=== PATIENT | female | born 1950 | race Caucasian/White ===

== ENCOUNTER 2017-05-27 19:11 | Emergency (ER) | payer MEDICARE, BC ==
[2017-05-27] MEDS ORDERED: Ketorolac 30 MG/ML SDV ONE (19:23)
[2017-05-27] MEDS ORDERED: Sodium Chloride 0.9% 1,000 ML IV ONE ×2 (19:28→19:40)
[2017-05-27] MEDS ORDERED: Ketorolac 30 MG/ML SDV IVPUSH ONE ×2 (19:28→19:40)
[2017-05-27] MEDS ORDERED: Sodium Chloride 0.9% 1,000 ML ONE (19:30)
[2017-05-27] MEDS ORDERED: Ondansetron 4 MG/2 ML SDV IVPUSH ONE (19:40)
[2017-05-27] MEDS ORDERED: Morphine 4 MG/ML Syringe IVPUSH ONE (19:40)
[2017-05-27] MEDS ORDERED: Morphine 4 MG/ML Syringe ONE (19:40)
[2017-05-27] MEDS ORDERED: Ondansetron 4 MG/2 ML SDV ONE (19:41)
[2017-05-27 19:48] LABS: CHLORIDE,CL 105 mmol/L (98-115); SODIUM,NA 145 mmol/L (136-145)
--- NOTE | 2017-05-27 19:49 | EDM.PDOC ---
ED HPI GENERAL MEDICAL PROBLEM - General Chief Complaint: Flank Pain Stated Complaint: KIDNEY STONES Time Seen by Provider: 05/27/17 19:25 Source of Information: Reports: Patient History Limitations: Reports: No Limitations - History of Present Illness INITIAL COMMENTS - FREE TEXT/NARRATIVE: 66 YO WF present to ER complaining of severe right flank pain which began suddenly 2 hours ago. Pt reports she had recnetly been diagnosed and treated for kidney stones- pt had a stent placed in right ureter and lithotripsy. Pt reports she passed 3 stones over the weekend without discomfort, but today her pain became unbearable prompting ER evaluation. Onset: Today Onset Date: 05/27/17 Onset Time: 17:00 Duration: Hour(s): (2) Location: Reports: Back Quality: Reports: Sharp, Stabbing Severity: Severe Improves with: Reports: None Worsens with: Reports: None Associated Symptoms: Reports: Diaphoresis, Nausea/Vomiting. Denies: Chest Pain , Cough, Fever/Chills, Shortness of Breath - Related Data Allergies Allergy/AdvReac Type Severity Reaction Status Date / Time meperidine HCl [From Demerol] Allergy Severe Seizure Verified 05/27/17 20:06 tramadol Allergy Severe Anaphylactic Verified 05/27/17 20:06 Shock clindamycin Allergy Facial Verified 05/27/17 20:06 Swelling hydromorphone [From Dilaudid] Allergy Headache Verified 05/27/17 20:06 Home Meds: Home Meds Simvastatin [Zocor] 20 mg PO BEDTIME 02/26/14 [History] metFORMIN [Glucophage] 500 mg PO BIDM 02/26/14 [History] Multivitamin with Minerals [Multiple Vitamin] 1 tab PO DAILY 05/18/16 [History] Hydrocodone/Acetaminophen [Hydrocodon-Acetaminophn 10-325] 1 tab PO Q4H [History] Past Medical History HEENT History: Reports: Cataract Cardiovascular History: Reports: High Cholesterol Respiratory History: Reports: Pneumonia, Recurrent Gastrointestinal History: Reports: Diverticulosis, Hiatal Hernia Genitourinary History: Reports: None Musculoskeletal History: Reports: Other (See Below) Other Musculoskeletal History: bursitis Endocrine/Metabolic History: Reports: Diabetes, Type II - Infectious Disease History Infectious Disease History: Reports: Chicken Pox, Mumps - Past Surgical History HEENT Surgical History: Reports: Cataract Surgery GI Surgical History: Reports: Hernia Repair/Other Social & Family History - Family History Cardiac: Reports: Heart Failure, [place] - Tobacco Use Smoking Status *Q: Never Smoker - Caffeine Use Caffeine Use: Reports: None - Alcohol Use Days Per Week of Alcohol Use: 0 - Recreational Drug Use Recreational Drug Use: No - Living Situation & Occupation Occupation: Employed ED ROS GENERAL - Review of Systems Review Of Systems: See Below Constitutional: Reports: No Symptoms HEENT: Reports: No Symptoms Respiratory: Reports: No Symptoms Cardiovascular: Reports: No Symptoms GI/Abdominal: Reports: Nausea : Reports: No Symptoms Musculoskeletal: Reports: Back Pain Skin: Reports: No Symptoms Neurological: Reports: No Symptoms Psychiatric: Reports: No Symptoms Hematologic/Lymphatic: Reports: No Symptoms Immunologic: Reports: No Symptoms ED EXAM, GI/ABD - Physical Exam Exam: See Below Exam Limited By: No Limitations General Appearance: Alert, WD/WN, Mild Distress Throat/Mouth: Normal Inspection, Normal Lips, Normal Teeth, Normal Gums, Normal Oropharynx, Normal Voice, No Airway Compromise Head: Atraumatic, Normocephalic Neck: Normal Inspection, Supple, Non-Tender, Full Range of Motion Respiratory/Chest: No Respiratory Distress, Lungs Clear, Normal Breath Sounds, No Accessory Muscle Use, Chest Non-Tender Cardiovascular: Normal Peripheral Pulses, Regular Rate, Rhythm, No Edema, No Gallop, No JVD, No Murmur, No Rub GI/Abdominal Exam: Normal Bowel Sounds, Soft, Non-Tender, No Organomegaly, No Distention, No Abnormal Bruit, No Mass, Pelvis Stable Back Exam: Full Range of Motion, CVA Tenderness (R) Extremities: Normal Inspection, Normal Range of Motion, Non-Tender, Normal Capillary Refill, No Pedal Edema Neurological: Alert, Oriented, CN II-XII Intact, Normal Cognition, Normal Gait, Normal Reflexes, No Motor/Sensory Deficits Psychiatric: Normal Affect, Normal Mood Skin Exam: Warm, Dry, Intact, Normal Color, No Rash Lymphatic: No Adenopathy Course - Vital Signs Last Recorded V/S: Last Vital Signs Temp 36.4 C 05/27/17 19:35 Pulse 84 05/27/17 20:21 Resp 20 05/27/17 19:55 BP 162/63 H 05/27/17 20:21 Pulse Ox 94 L 05/27/17 19:55 - Orders/Labs/Meds Orders: Active Orders 24 hr Category Date Time Status Abdomen Pelvis wo Cont [CT] Routine Exams 05/27/17 Taken Sodium Chloride 0.9% [Normal Saline] 1,000 ml Med 05/27/17 19:40 Active IV .BOLUS Medication Orders Sodium Chloride (Normal Saline) 1,000 mls @ 999 mls/hr IV .BOLUS ONE Stop: 05/27/17 20:40 Last Admin: 05/27/17 19:49 Dose: Not Given Labs: Laboratory Tests 05/27/17 05/27/17 05/27/17 Range/Units 19:20 19:20 20:15 WBC 8.4 (5.0-10.0) 10^3/uL RBC 5.02 (3.80-5.50) 10^6/uL Hgb 14.8 (12.0-16.0) g/dL Hct 43.2 (37.0-47.0) % MCV 86.1 (82.0-92.0) fL MCH 29.5 (27.0-31.0) pg MCHC 34.2 (32.0-36.0) g/dL RDW 13.0 (11.5-14.5) % Plt Count 247 (150-300) 10^3/uL MPV 7.4 (7.4-10.4) fL Neut % (Auto) 59.7 (50.0-70.0) % Lymph % (Auto) 29.3 (20.0-40.0) % [place] % (Auto) 7.1 (2.0-8.0) % Eos % (Auto) 3.6 H (1.0-3.0) % Baso % (Auto) 0.3 (0.0-1.0) % Neut # (Auto) 5.0 (2.5-7.0) 10^3/uL Lymph # (Auto) 2.5 (1.0-4.0) 10^3/uL [place] # (Auto) 0.6 (0.1-0.8) 10^3/uL Eos # (Auto) 0.3 (0.1-0.3) 10^3/uL Baso # (Auto) 0.0 (0.0-0.1) 10^3/uL Sodium 145 (136-145) mmol/L Potassium 4.4 (3.3-5.3) mmol/L Chloride 105 (98-115) mmol/L Carbon Dioxide 29.3 (21.0-32.0) mmol/L BUN 20 (6-25) mg/dL Creatinine 0.88 (0.51-1.17) mg/dL Est Cr Clr Drug Dosing 53.95 mL/min Estimated GFR (MDRD) > 60 mL/min Glucose 167 H (70-110) mg/dL Calcium 9.3 (8.7-10.3) mg/dL Specimen Type Urincc Urine Color [place] Light (YELLOW) Urine Appearance Cloudy H (CLEAR) Urine pH 6.5 (5.0-9.0) Ur Specific [place] 1.015 (1.005-1.030) Urine Protein 100 H (NEGATIVE) mg/dL Urine Glucose (UA) Negative (NEGATIVE) mg/dL Urine Ketones Negative (NEGATIVE) mg/dL Urine Occult Blood Large H (NEGATIVE) Urine Nitrite Negative (NEGATIVE) Urine Bilirubin Negative (NEGATIVE) Urine Urobilinogen 0.2 (0.2-1.0) E.U./dL Ur Leukocyte Esterase Small H (NEGATIVE) Urine RBC 75-100 H /HPF Urine WBC 0-5 /HPF Meds: Medications Generic Name Dose Route Start Last Admin Trade Name Freq PRN Reason Stop Dose Admin Sodium Chloride 1,000 mls @ 999 mls/hr 05/27/17 19:40 05/27/17 19:49 Normal Saline IV 05/27/17 20:40 Not Given .BOLUS ONE Discontinued Medications Generic Name Dose Route Start Last Admin Trade Name Freq PRN Reason Stop Dose Admin Sodium Chloride 1,000 mls @ 999 mls/hr 05/27/17 19:28 05/27/17 19:32 Normal Saline IV 05/27/17 20:28 999 mls/hr .BOLUS ONE Administration Sodium Chloride Confirm 05/27/17 19:30 05/27/17 19:48 Normal Saline Administered 05/27/17 19:31 Not Given Dose 1,000 mls @ as directed .ROUTE .STK-MED ONE Ketorolac Tromethamine Confirm 05/27/17 19:23 Toradol Administered 05/27/17 19:24 Dose 30 mg .ROUTE .STK-MED ONE Ketorolac Tromethamine 30 mg 05/27/17 19:28 05/27/17 19:25 Toradol IVPUSH 05/27/17 19:29 30 mg ONETIME ONE Administration Ketorolac Tromethamine 30 mg 05/27/17 19:40 Toradol IVPUSH 05/27/17 19:41 ONETIME ONE Morphine Sulfate 4 mg 05/27/17 19:40 05/27/17 19:45 Morphine IVPUSH 05/27/17 19:41 4 mg ONETIME ONE Administration Morphine Sulfate Confirm 05/27/17 19:40 05/27/17 19:47 Morphine Administered 05/27/17 19:41 Not Given Dose 4 mg .ROUTE .STK-MED ONE Ondansetron HCl 4 mg 05/27/17 19:40 Zofran IVPUSH 05/27/17 19:41 ONETIME ONE Ondansetron HCl Confirm 05/27/17 19:41 Zofran Administered 05/27/17 19:42 Dose 4 mg .ROUTE .STK-MED ONE - Radiology Interpretation Free Text/Narrative:: CT abd/pelvis- Departure - Departure Time of Disposition: 20:31 Disposition: Home, Self-Care 01 Condition: Good Clinical Impression: Kidney stone on right side - Discharge Information Instructions: Renal Colic, [id number], Kidney Stones, [id number] Referrals: Kirsten Castellano MD [Primary Care Provider] - Forms: ED Department Discharge - My Orders Last 24 Hours: My Active Orders 05/27/17 Abdomen Pelvis wo Cont [CT] Routine 05/27/17 19:40 Sodium Chloride 0.9% [Normal Saline] 1,000 ml IV .BOLUS - Assessment/Plan Last 24 Hours: My Active Orders 05/27/17 Abdomen Pelvis wo Cont [CT] Routine 05/27/17 19:40 Sodium Chloride 0.9% [Normal Saline] 1,000 ml IV .BOLUS Assessment:: 1. kidney stones Plan: 1. pain resolved after morphine in ER 2. patient has hydrocodone at home which she reports not requiring in 3 days 3. follow up with urology in [place] as scheduled in 1 week 4. return to ER for worsening symptoms
[2017-05-27 20:23] VITALS: BP 162/63
== END 2017-05-27 21:00 | disposition home or self-care (01) ==
LOC: KA.ED 19:11
DX: N13.2 Hydronephrosis with renal and ureteral calculous obstruction (principal); E11.9 Type 2 diabetes mellitus without complications; E78.00 Pure hypercholesterolemia, unspecified; Z98.49 Cataract extraction status, unspecified eye; Z88.5 Allergy status to narcotic agent; Z79.84 Long term (current) use of oral hypoglycemic drugs; Z79.899 Other long term (current) drug therapy; Z87.01 Personal history of pneumonia (recurrent)
CPT/HCPCS: 74176; 80048; 81001; 85025; 96361; 96374; 96375; 99284; J1885; J2270; J2405; J7030

== ENCOUNTER 2017-11-21 18:30 | Emergency (ER) | payer MEDICARE, BC ==
--- NOTE | 2017-11-21 18:48 | EDM.PDOC ---
ED HPI GENERAL MEDICAL PROBLEM - General Chief Complaint: Genitourinary Problem Stated Complaint: LEFT SIDE FLANK PAIN Time Seen by Provider: 11/21/17 18:37 Source of Information: Reports: Patient History Limitations: Reports: No Limitations - History of Present Illness INITIAL COMMENTS - FREE TEXT/NARRATIVE: Patient is a 67-year-old female who presents to the emergency Department this evening with a complaint of left flank pain. States pain started about 1730 this evening and similar to prior renal stone episodes. Patient was seen here May 2017 for similar symptoms and found to have right-sided renal calculi. She does have a history of lithotripsy and stent placement on the right. Patient denies fever, dysuria, hematuria, nausea, vomiting, diarrhea, abdominal pain, any trauma, or pain radiating to lower extremities. Onset: Today Onset Date: 11/21/17 Onset Time: 17:30 Duration: Hour(s):, Getting Worse Location: Reports: Other (Left flank) Quality: Reports: Sharp Severity: Moderate Improves with: Reports: None Worsens with: Reports: Movement Associated Symptoms: Reports: No Other Symptoms. Denies: Chest Pain, Nausea/ Vomiting, Shortness of Breath Left Back Pain Score (Numeric/FACES): 9 - Related Data Allergies Allergy/AdvReac Type Severity Reaction Status Date / Time meperidine HCl [From Demerol] Allergy Severe Seizure Verified 11/21/17 19:28 tramadol Allergy Severe Anaphylactic Verified 11/21/17 19:28 Shock clindamycin Allergy Facial Verified 11/21/17 19:28 Swelling fentanyl Allergy Seizure Verified 11/21/17 19:28 hydromorphone [From Dilaudid] Allergy Headache Verified 11/21/17 19:28 Home Meds: Home Meds Simvastatin [Zocor] 20 mg PO BEDTIME 02/26/14 [History] metFORMIN [Glucophage] 500 mg PO BIDM 02/26/14 [History] Multivitamin with Minerals [Multiple Vitamin] 1 tab PO DAILY 05/18/16 [History] Hydrocodone/Acetaminophen [Hydrocodon-Acetaminophn 10-325] 1 tab PO Q4H [History] Lisinopril [Lisinopril] 10 mg PO DAILY 11/21/17 [History] Past Medical History HEENT History: Reports: Cataract Cardiovascular History: Reports: High Cholesterol Respiratory History: Reports: Pneumonia, Recurrent Gastrointestinal History: Reports: Diverticulosis, Hiatal Hernia Genitourinary History: Reports: Renal Calculus, Other (See Below) Other Genitourinary History: recent cystoscopy and lipotripsy for renal stones to R kidney and stent placement to R ureter 2 weeks ago ((05/14/2017) Musculoskeletal History: Reports: Other (See Below) Other Musculoskeletal History: bursitis Endocrine/Metabolic History: Reports: Diabetes, Type II - Infectious Disease History Infectious Disease History: Reports: Chicken Pox, Mumps - Past Surgical History HEENT Surgical History: Reports: Cataract Surgery GI Surgical History: Reports: Hernia Repair/Other Social & Family History - Family History Cardiac: Reports: Heart Failure, [place] - Tobacco Use Smoking Status *Q: Never Smoker - Caffeine Use Caffeine Use: Reports: None - Alcohol Use Days Per Week of Alcohol Use: 0 - Recreational Drug Use Recreational Drug Use: No - Living Situation & Occupation Occupation: Employed ED ROS GENERAL - Review of Systems Review Of Systems: ROS reveals no pertinent complaints other than HPI. Constitutional: Reports: No Symptoms HEENT: Reports: No Symptoms Respiratory: Reports: No Symptoms Cardiovascular: Reports: No Symptoms Endocrine: Reports: No Symptoms GI/Abdominal: Reports: No Symptoms : Reports: Flank Pain (on left) Musculoskeletal: Reports: No Symptoms Skin: Reports: No Symptoms Neurological: Reports: No Symptoms Psychiatric: Reports: No Symptoms Hematologic/Lymphatic: Reports: No Symptoms Immunologic: Reports: No Symptoms ED EXAM, RENAL/ - Physical Exam Exam: See Below Exam Limited By: No Limitations General Appearance: Alert, WD/WN, Mild Distress Throat/Mouth: Normal Inspection, Normal Oropharynx, No Airway Compromise Head: Atraumatic, Normocephalic Neck: Normal Inspection Respiratory/Chest: No Respiratory Distress, Lungs Clear, Normal Breath Sounds, No Accessory Muscle Use, Chest Non-Tender Cardiovascular: Regular Rate, Rhythm, No Murmur GI/Abdominal: Normal Bowel Sounds, Soft, Non-Tender, No Organomegaly, No Distention, No Abnormal Bruit, No Mass Back Exam: CVA Tenderness (L). No: CVA Tenderness (R) Extremities: Normal Inspection, No Pedal Edema Neurological: Alert, Oriented, Normal Cognition Psychiatric: Normal Affect, Normal Mood Skin Exam: Warm, Dry, Intact, Normal Color, No Rash Course - Vital Signs Last Recorded V/S: Last Vital Signs Temp 98.4 F 11/21/17 19:29 Pulse 109 H 11/21/17 19:29 Resp 18 11/21/17 19:29 BP 185/96 H 11/21/17 19:29 Pulse Ox 94 L 11/21/17 19:29 - Orders/Labs/Meds Orders: Active Orders 24 hr Category Date Time Status Abdomen Pelvis wo Cont [CT] Stat Exams 11/21/17 18:47 Ordered CULTURE URINE [RM] Stat Lab 11/21/17 19:35 Ordered Labs: Laboratory Tests 11/21/17 11/21/17 11/21/17 Range/Units 18:45 19:00 19:00 WBC 6.5 (5.0-10.0) 10^3/uL RBC 4.90 (3.80-5.50) 10^6/uL Hgb 14.1 (12.0-16.0) g/dL Hct 43.3 (37.0-47.0) % MCV 88.2 (82.0-92.0) fL MCH 28.7 (27.0-31.0) pg MCHC 32.6 (32.0-36.0) g/dL RDW 13.3 (11.5-14.5) % Plt Count 230 (150-300) 10^3/uL MPV 7.4 (7.4-10.4) fL Neut % (Auto) 60.9 (50.0-70.0) % Lymph % (Auto) 29.6 (20.0-40.0) % [place] % (Auto) 6.3 (2.0-8.0) % Eos % (Auto) 2.6 (1.0-3.0) % Baso % (Auto) 0.6 (0.0-1.0) % Neut # (Auto) 4.0 (2.5-7.0) 10^3/uL Lymph # (Auto) 1.9 (1.0-4.0) 10^3/uL [place] # (Auto) 0.4 (0.1-0.8) 10^3/uL Eos # (Auto) 0.2 (0.1-0.3) 10^3/uL Baso # (Auto) 0.0 (0.0-0.1) 10^3/uL Sodium 145 (136-145) mmol/L Potassium 3.9 (3.3-5.3) mmol/L Chloride 106 (98-115) mmol/L Carbon Dioxide 26.5 (21.0-32.0) mmol/L BUN 22 (6-25) mg/dL Creatinine 0.82 (0.51-1.17) mg/dL Est Cr Clr Drug Dosing TNP Estimated GFR (MDRD) > 60 mL/min Glucose 116 H (70-110) mg/dL Calcium 9.4 (8.7-10.3) mg/dL Total Bilirubin 0.3 (0.2-1.0) mg/dL AST 29 (15-37) U/L ALT 37 (12-78) U/L Alkaline Phosphatase 67 (46-116) IU/L Total Protein 7.9 (6.4-8.2) g/dL Albumin 4.29 (3.00-4.80) g/dL Specimen Type Urincc Urine Color Yellow (YELLOW) Urine Appearance Clear (CLEAR) Urine pH 5.5 (5.0-9.0) Ur Specific [place] 1.025 (1.005-1.030) Urine Protein Negative (NEGATIVE) mg/dL Urine Glucose (UA) Negative (NEGATIVE) mg/dL Urine Ketones Trace H (NEGATIVE) mg/dL Urine Occult Blood Negative (NEGATIVE) Urine Nitrite Negative (NEGATIVE) Urine Bilirubin Negative (NEGATIVE) Urine Urobilinogen 0.2 (0.2-1.0) E.U./dL Ur Leukocyte Esterase Negative (NEGATIVE) Urine RBC 0-5 /HPF Urine WBC 5-10 H /HPF Ur Epithelial Cells Few /LPF Urine Bacteria Few (NONE TO FEW) /HPF Meds: Medications Discontinued Medications Generic Name Dose Route Start Last Admin Trade Name Freq PRN Reason Stop Dose Admin Sodium Chloride 1,000 mls @ 999 mls/hr 11/21/17 18:42 11/21/17 18:58 Normal Saline IV 11/21/17 19:42 999 mls/hr .BOLUS ONE Administration Ketorolac Tromethamine 30 mg 11/21/17 18:42 11/21/17 18:58 Toradol IVPUSH 11/21/17 18:43 30 mg ONETIME ONE Administration Morphine Sulfate 4 mg 11/21/17 18:42 11/21/17 19:01 Morphine IVPUSH 11/21/17 18:43 4 mg ONETIME ONE Administration Ondansetron HCl 4 mg 11/21/17 18:42 11/21/17 19:04 Zofran IVPUSH 11/21/17 18:43 4 mg ONETIME ONE Administration - Radiology Interpretation Free Text/Narrative:: CT abdomen and pelvis without IV contrast shows no acute process. - Re-Assessments/Exams Free Text/Narrative Re-Assessment/Exam: 11/21/17 20:00 Patient afebrile, nontoxic appearing. Vital signs stable, pain relieved. Patient will follow-up with primary care doctor in 2-3 days. Departure - Departure Time of Disposition: 20:00 Disposition: Home, Self-Care 01 Condition: Good Clinical Impression: Back pain Qualifiers: Back pain location: low back pain Chronicity: acute Back pain laterality: left Sciatica presence: without sciatica Qualified Code(s): M54.5 - Low back pain - Discharge Information Instructions: Muscle Strain, [id number], Back Pain, Adult, [id number] Referrals: Kirsten Castellano MD [Primary Care Provider] - Forms: ED Department Discharge Additional Instructions: Follow-up with Dr. Ornelas in 2-3 days. Return to emergency department sooner if symptoms continue or worsen. - My Orders Last 24 Hours: My Active Orders 11/21/17 18:47 Abdomen Pelvis wo Cont [CT] Stat 11/21/17 19:35 CULTURE URINE [RM] Stat - Assessment/Plan Last 24 Hours: My Active Orders 11/21/17 18:47 Abdomen Pelvis wo Cont [CT] Stat 11/21/17 19:35 CULTURE URINE [RM] Stat Assessment:: Back pain, flank pain Plan: Follow-up with PCP in one to 2 days
[2017-11-21] MEDS: Ketorolac 30 MG/ML SDV IVPUSH ONE (18:58)
[2017-11-21] MEDS: Sodium Chloride 0.9% 1,000 ML IV ONE (18:58)
[2017-11-21] MEDS: Morphine 4 MG/ML Syringe IVPUSH ONE (19:01)
[2017-11-21] MEDS: Ondansetron 4 MG/2 ML SDV IVPUSH ONE (19:04)
[2017-11-21 19:32] VITALS: BP 185/96
[2017-11-21 19:32] LABS: CHLORIDE,CL 106 mmol/L (98-115); SODIUM,NA 145 mmol/L (136-145)
== END 2017-11-21 20:05 | disposition home or self-care (01) ==
LOC: KA.ED 18:30
DX: M54.5 Low back pain (principal); E11.9 Type 2 diabetes mellitus without complications; E78.00 Pure hypercholesterolemia, unspecified; Z88.5 Allergy status to narcotic agent; Z88.1 Allergy status to other antibiotic agents; Z79.84 Long term (current) use of oral hypoglycemic drugs; Z79.899 Other long term (current) drug therapy; Z87.442 Personal history of urinary calculi
CPT/HCPCS: 36415; 74176; 80053; 81001; 85025; 87086; 96361; 96374; 96375; 99284; J1885; J2270; J2405; J7030

== ENCOUNTER 2018-05-10 09:39 | Emergency (ER) | payer MEDICARE, BC ==
[2018-05-10] MEDS ORDERED: Ondansetron 4 MG/2 ML SDV IVPUSH ONE (10:35)
[2018-05-10] MEDS ORDERED: Morphine 2 MG/ML Syringe IVPUSH ONE (10:35)
[2018-05-10] MEDS ORDERED: Sodium Chloride 0.9% 1,000 ML IV ONE ×2 (10:40→11:19)
--- NOTE | 2018-05-10 11:59 | EDM.PDOC ---
ED HPI GENERAL MEDICAL PROBLEM - General Chief Complaint: General Stated Complaint: KIDNEY STONES?? Time Seen by Provider: 05/10/18 10:45 Source of Information: Reports: Patient, Family (daughter) - History of Present Illness INITIAL COMMENTS - FREE TEXT/NARRATIVE: 67-year-old female presents to the emergency room with complaints of left greater than right flank pain. She reports she's been experiencing some nausea and colicky type sharp pain in her flank. She does have a history of multiple kidney stones in the past. She is been feeling symptoms coming on gradually over the last several days but severity increased this morning. She has not had any emesis. She denies any dysuria or hematuria. She hasn't taken anything for her discomfort. She does have some hydrocodone at home from prior episodes for her kidney stones. Onset: Today Onset Date: 05/10/18 Duration: Hour(s):, Getting Worse Location: Reports: Back Quality: Reports: Stabbing Severity: Severe Improves with: Reports: None Associated Symptoms: Reports: Nausea/Vomiting Generalized Pain Score (Numeric/FACES): 8 - Related Data Allergies Allergy/AdvReac Type Severity Reaction Status Date / Time meperidine HCl [From Demerol] Allergy Severe Seizure Verified 05/10/18 10:50 tramadol Allergy Severe Anaphylactic Verified 05/10/18 10:50 Shock clindamycin Allergy Facial Verified 05/10/18 10:50 Swelling fentanyl Allergy Seizure Verified 05/10/18 10:50 hydromorphone [From Dilaudid] Allergy Headache Verified 05/10/18 10:50 Home Meds: Home Meds Simvastatin [Zocor] 20 mg PO BEDTIME 02/26/14 [History] metFORMIN [Glucophage] 1,000 mg PO BIDM 02/26/14 [History] Multivitamin with Minerals [Multiple Vitamin] 1 tab PO DAILY 05/18/16 [History] Hydrocodone/Acetaminophen [Hydrocodon-Acetaminophn 10-325] 1 tab PO Q4H PRN 05/06 [History] Lisinopril 10 mg PO DAILY 11/21/17 [History] Magnesium Oxide [Magnesium] 500 mg PO DAILY 05/10/18 [History] Potassium Gluconate [Potassium] 595 mg PO DAILY 05/10/18 [History] Past Medical History HEENT History: Reports: Cataract Cardiovascular History: Reports: High Cholesterol Respiratory History: Reports: Pneumonia, Recurrent Gastrointestinal History: Reports: Diverticulosis, Hiatal Hernia Genitourinary History: Reports: Renal Calculus, Other (See Below) Other Genitourinary History: recent cystoscopy and lipotripsy for renal stones to R kidney and stent placement to R ureter 2 weeks ago ((05/14/2017) [employer] History: Reports: Musculoskeletal History: Reports: Other (See Below) Other Musculoskeletal History: bursitis Endocrine/Metabolic History: Reports: Diabetes, Type II - Infectious Disease History Infectious Disease History: Reports: Shingles - Past Surgical History HEENT Surgical History: Reports: Cataract Surgery Cardiovascular Surgical History: Reports: None Respiratory Surgical History: Reports: None GI Surgical History: Reports: Colonoscopy, Hernia Repair/Other Female Surgical History: Reports: Breast Biopsy, Hysterectomy Endocrine Surgical History: Reports: None Musculoskeletal Surgical History: Reports: None Social & Family History - Family History Cardiac: Reports: Heart Failure, [place] - Tobacco Use Smoking Status *Q: Never Smoker - Caffeine Use Caffeine Use: Reports: None - Recreational Drug Use Recreational Drug Use: No - Living Situation & Occupation Occupation: Employed ED ROS GENERAL - Review of Systems Review Of Systems: See Below Constitutional: Denies: Fever, Diaphoresis HEENT: Reports: Glasses Respiratory: Denies: Shortness of Breath Cardiovascular: Denies: Chest Pain Endocrine: Reports: No Symptoms GI/Abdominal: Reports: Nausea. Denies: Abdominal Pain : Reports: Flank Pain. Denies: Hematuria, Urgency Musculoskeletal: Reports: Back Pain Skin: Denies: Cyanosis, Diaphoresis Neurological: Reports: No Symptoms Psychiatric: Reports: No Symptoms Hematologic/Lymphatic: Reports: No Symptoms Immunologic: Reports: No Symptoms ED EXAM, GENERAL - Physical Exam Exam: See Below Exam Limited By: No Limitations General Appearance: Alert, WD/WN, No Apparent Distress Nose: Normal Inspection Throat/Mouth: Normal Inspection, Normal Voice, No Airway Compromise Head: Atraumatic, Normocephalic Neck: Normal Inspection Respiratory/Chest: No Respiratory Distress, Lungs Clear, Normal Breath Sounds Cardiovascular: Regular Rate, Rhythm GI/Abdominal: Normal Bowel Sounds, Soft, Non-Tender, No Organomegaly. No: Rebound, Tender Back Exam: CVA Tenderness (L), CVA Tenderness (R). No: Paraspinal Tenderness, Vertebral Tenderness Extremities: Normal Inspection, Normal Range of Motion Neurological: Alert, Oriented, No Motor/Sensory Deficits Psychiatric: Normal Affect, Normal Mood Skin Exam: Warm, Dry, Intact, Normal Color, No Rash Course - Vital Signs Last Recorded V/S: Last Vital Signs Temp 98.1 F 05/10/18 12:32 Pulse 68 05/10/18 12:32 Resp 18 05/10/18 12:32 BP 98/40 L 05/10/18 12:32 Pulse Ox 97 05/10/18 12:32 - Orders/Labs/Meds Labs: Laboratory Tests 05/10/18 05/10/18 05/10/18 Range/Units 10:05 10:30 10:30 WBC 8.7 (5.0-10.0) 10^3/uL RBC 4.15 (3.80-5.50) 10^6/uL Hgb 12.7 (12.0-16.0) g/dL Hct 37.4 (37.0-47.0) % MCV 90.1 (82.0-92.0) fL MCH 30.7 (27.0-31.0) pg MCHC 34.0 (32.0-36.0) g/dL RDW 13.4 (11.5-14.5) % Plt Count 176 (150-300) 10^3/uL MPV 6.9 L (7.4-10.4) fL Neut % (Auto) 82.4 H (50.0-70.0) % Lymph % (Auto) 8.7 L (20.0-40.0) % [place] % (Auto) 7.6 (2.0-8.0) % Eos % (Auto) 0.5 L (1.0-3.0) % Baso % (Auto) 0.8 (0.0-1.0) % Neut # (Auto) 7.1 H (2.5-7.0) 10^3/uL Lymph # (Auto) 0.8 L (1.0-4.0) 10^3/uL [place] # (Auto) 0.7 (0.1-0.8) 10^3/uL Eos # (Auto) 0.0 L (0.1-0.3) 10^3/uL Baso # (Auto) 0.1 (0.0-0.1) 10^3/uL Sodium 150 H (136-145) mmol/L Potassium 4.8 (3.3-5.3) mmol/L Chloride 104 (98-115) mmol/L Carbon Dioxide 26.8 (21.0-32.0) mmol/L Anion Gap 24.0 H (5-15) mmol/L BUN 22 (6-25) mg/dL Creatinine 1.07 (0.51-1.17) mg/dL Est Cr Clr Drug Dosing 50.06 mL/min Estimated GFR (MDRD) 51 mL/min Glucose 142 mg/dL Calcium 9.2 (8.7-10.3) mg/dL Specimen Type Urincc Urine Color Dark yellow H (YELLOW) Urine Appearance Slightly cloudy H (CLEAR) Urine pH 5.0 (5.0-9.0) Ur Specific [place] >= 1.030 (1.005-1.030) Urine Protein 100 H (NEGATIVE) mg/dL Urine Glucose (UA) Negative (NEGATIVE) mg/dL Urine Ketones 15 H (NEGATIVE) mg/dL Urine Occult Blood Negative (NEGATIVE) Urine Nitrite Negative (NEGATIVE) Urine Bilirubin Small H (NEGATIVE) Urine Urobilinogen 0.2 (0.2-1.0) E.U./dL Ur Leukocyte Esterase Negative (NEGATIVE) Urine RBC 0-5 /HPF Urine WBC 5-10 H /HPF Ur Epithelial Cells Few /LPF Urine Bacteria Moderate H (NONE TO FEW) /HPF Meds: Medications Discontinued Medications Generic Name Dose Route Start Last Admin Trade Name Freq PRN Reason Stop Dose Admin Sodium Chloride 1,000 mls @ 1,000 mls/hr 05/10/18 10:40 05/10/18 10:10 Normal Saline IV 05/10/18 11:39 1,000 mls/hr .BOLUS ONE Administration Sodium Chloride 1,000 mls @ 1,000 mls/hr 05/10/18 11:19 05/10/18 11:21 Normal Saline IV 05/10/18 12:18 1,000 mls/hr .BOLUS ONE Administration Morphine Sulfate 2 mg 05/10/18 10:35 05/10/18 09:45 Morphine IVPUSH 05/10/18 10:36 2 mg ONETIME ONE Administration Ondansetron HCl 4 mg 05/10/18 10:35 05/10/18 09:43 Zofran IVPUSH 05/10/18 10:36 4 mg ONETIME ONE Administration - Re-Assessments/Exams Free Text/Narrative Re-Assessment/Exam: 05/10/18 12:09 pain has improved to 5/10. 2L NS IV given. MS 2mg IV given. 05/10/18 12:57 Nausea is resolved with IV Zofran. Her pain is improved and feels is manageable at this time. She has not felt the need to urinate. She does state that she has a urine screen at home. Departure - Departure Time of Disposition: 13:03 Disposition: Home, Self-Care 01 Condition: Fair Clinical Impression: Kidney stone on right side, Bilateral flank pain, History of kidney stones - Discharge Information Instructions: Kidney Stones, [id number], Flank Pain, Adult, [id number] Referrals: Kirsten Castellano MD [Primary Care Provider] - Forms: ED Department Discharge Additional Instructions: 1. Continue with oral hydration. Recommend drinking 2 L of water a day 2. Zofran ODT for nausea every 6 hours when necessary. 3. Patient should screen her urine so she knows when she passes a stone. 4. Hydrocodone as needed for pain no additional narcotics was prescribed. Patient has her own hydrocodone. 5. Follow-up with your urology and/or primary care if symptoms persist or reoccur. - Assessment/Plan Assessment:: Flank pain Nausea History of kidney stones kidney stone Mild hypernatremia Mild dehydration Plan: 1. Continue with oral hydration. Recommend drinking 2 L of water a day 2. Zofran ODT for nausea every 6 hours when necessary. 3. Patient should screen her urine so she knows when she passes a stone. 4. Hydrocodone as needed for pain no additional narcotics was prescribed. Patient has her own hydrocodone. 5. Follow-up with your urology and/or primary care if symptoms persist or reoccur.
[2018-05-10 12:32] VITALS: BP 98/40
[2018-05-10] MEDS ORDERED: Ondansetron 4 MG Tab.DIS PO SCH (13:00)
== END 2018-05-10 13:15 | disposition home or self-care (01) ==
LOC: KA.ED 09:39
DX: N20.0 Calculus of kidney (principal); E87.0 Hyperosmolality and hypernatremia; E86.0 Dehydration; E11.9 Type 2 diabetes mellitus without complications; Z88.8 Allergy status to other drugs, medicaments and biological substances; Z88.5 Allergy status to narcotic agent; Z79.899 Other long term (current) drug therapy
CPT/HCPCS: 36415; 80048; 81001; 85025; 96361; 96374; 96375; 99284; A9270; J2270; J2405; J7030

== ENCOUNTER 2019-01-01 07:48 | Emergency (ER) | payer MEDICARE, BC ==
[2019-01-01 08:12] VITALS: BP 149/91
--- NOTE | 2019-01-01 08:32 | EDM.PDOC ---
ED HPI GENERAL MEDICAL PROBLEM - General Chief Complaint: General Stated Complaint: UPPER RESPIRATORY Time Seen by Provider: 01/01/19 08:15 Source of Information: Reports: Patient History Limitations: Reports: No Limitations - History of Present Illness INITIAL COMMENTS - FREE TEXT/NARRATIVE: 68 YO WF presents to ER complaining of sore throat x 2 days with congestion. Pt reports symptoms started yesterday but became worse overnight. Pt states she's able to swallow but it's painful. Pt denies any stridor, no neck stiffness, no fever/chills and no shortness of breath. Pt denies any recent sick contacts. Onset Date: 12/31/18 Duration: Day(s): (2) Location: Reports: Other (throat) Quality: Reports: Ache Severity: Moderate Improves with: Reports: None Worsens with: Reports: None Associated Symptoms: Reports: No Other Symptoms, Cough. Denies: Fever/Chills, Headaches, Nausea/Vomiting, Rash - Related Data Allergies Allergy/AdvReac Type Severity Reaction Status Date / Time meperidine HCl [From Demerol] Allergy Severe Seizure Verified 01/01/19 07:55 tramadol Allergy Severe Anaphylactic Verified 01/01/19 07:55 Shock clindamycin Allergy Facial Verified 01/01/19 07:55 Swelling fentanyl Allergy Seizure Verified 01/01/19 07:55 hydromorphone [From Dilaudid] Allergy Headache Verified 01/01/19 07:55 Home Meds: Home Meds Simvastatin [Zocor] 20 mg PO BEDTIME 02/26/14 [History] Hydrocodone/Acetaminophen [Hydrocodon-Acetaminophn 10-325] 1 tab PO Q4H PRN 05/06 [History] Lisinopril 10 mg PO DAILY 11/21/17 [History] Ondansetron [Ondansetron ODT] 4 mg SL Q8H PRN 05/20/18 [History] metFORMIN HCl [Metformin HCl] 1,000 mg PO BIDMEALS #0 05/24/18 [Rx] Multivitamin [Multivitamins] 1 cap PO DAILY 06/28/18 [History] Urea [Urea 20% Crm] 1 applic TOP TID 08/04/18 [History] Amoxicillin [Amoxil] 875 mg PO Q12HR #18 tab 01/01/19 [Rx] Past Medical History HEENT History: Reports: Cataract Other HEENT History: glasses Cardiovascular History: Reports: High Cholesterol, Hypertension Respiratory History: Reports: Pneumonia, Recurrent Gastrointestinal History: Reports: Diverticulosis, Hiatal Hernia Other Gastrointestinal History: umbilical hernias Genitourinary History: Reports: Renal Calculus, Other (See Below) Other Genitourinary History: recent cystoscopy and lipotripsy for renal stones to R kidney and stent placement to R ureter 2 weeks ago ((05/14/2017) [employer] 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: Musculoskeletal History: Reports: Other (See Below) Other Musculoskeletal History: bursitis Neurological History: Reports: Seizure, Other (See Below) Other Neuro History: in the past from pain medications Endocrine/Metabolic History: Reports: Diabetes, Type II - Infectious Disease History Infectious Disease History: Reports: Chicken Pox, Influenza, Measles, Mumps, Shingles - Past Surgical History Head Surgeries/Procedures: Reports: None HEENT Surgical History: Reports: Cataract Surgery Cardiovascular Surgical History: Reports: None Respiratory Surgical History: Reports: None GI Surgical History: Reports: Colonoscopy, Hernia Repair/Other Female Surgical History: Reports: Breast Biopsy, Hysterectomy, Lithotripsy/ ESWL, Ureteral Stent Endocrine Surgical History: Reports: None Neurological Surgical History: Reports: None Musculoskeletal Surgical History: Reports: None Social & Family History - Family History Family Medical History: Noncontributory Cardiac: Reports: Heart Failure, [place] - Tobacco Use Smoking Status *Q: Never Smoker Second Hand Smoke Exposure: No - Caffeine Use Caffeine Use: Reports: None - Recreational Drug Use Recreational Drug Use: No - Living Situation & Occupation Occupation: Employed ED ROS GENERAL - Review of Systems Review Of Systems: See Below Constitutional: Reports: No Symptoms HEENT: Reports: Rhinitis, Throat Pain. Denies: Throat Swelling Respiratory: Reports: No Symptoms Cardiovascular: Reports: No Symptoms Endocrine: Reports: No Symptoms GI/Abdominal: Reports: No Symptoms : Reports: No Symptoms Musculoskeletal: Reports: No Symptoms Skin: Reports: No Symptoms Neurological: Reports: No Symptoms Psychiatric: Reports: No Symptoms Hematologic/Lymphatic: Reports: No Symptoms Immunologic: Reports: No Symptoms ED EXAM, GENERAL - Physical Exam Exam: See Below Exam Limited By: No Limitations General Appearance: Alert, WD/WN, No Apparent Distress Ears: Normal External Exam, Normal Canal, Hearing Grossly Normal, Normal TMs Ear Exam: Bilateral Ear: Auricle Normal, Canal Normal, TM normal Nose: Nasal Drainage, Clear Rhinorrhea Throat/Mouth: Normal Lips, Normal Gums, Normal Voice, No Airway Compromise, Inflammation Head: Atraumatic, Normocephalic Neck: Normal Inspection, Supple, Non-Tender, Full Range of Motion Respiratory/Chest: No Respiratory Distress, Lungs Clear, Normal Breath Sounds, No Accessory Muscle Use, Chest Non-Tender Cardiovascular: Normal Peripheral Pulses, Regular Rate, Rhythm, No Edema, No Gallop, No JVD, No Murmur, No Rub GI/Abdominal: Normal Bowel Sounds, Soft, Non-Tender, No Organomegaly, No Distention, No Abnormal Bruit, No Mass Back Exam: Normal Inspection, Full Range of Motion, NT Extremities: Normal Inspection, Normal Range of Motion, Non-Tender, Normal Capillary Refill, No Pedal Edema Neurological: Alert, Oriented, CN II-XII Intact, Normal Cognition, Normal Gait, Normal Reflexes, No Motor/Sensory Deficits Psychiatric: Normal Affect, Normal Mood Skin Exam: Warm, Dry, Intact, Normal Color, No Rash Lymphatic: No Adenopathy Course - Vital Signs Last Recorded V/S: Last Vital Signs Temp 36.8 C 01/01/19 08:03 Pulse 107 H 01/01/19 08:03 Resp 16 01/01/19 08:03 BP 149/91 H 01/01/19 08:03 Pulse Ox 94 L 01/01/19 08:03 - Orders/Labs/Meds Orders: Active Orders 24 hr Category Date Time Status CULTURE STREP A CONFIRMATION [] Stat Lab 01/01/19 08:00 Results STREP SCRN A RAPID W CULT CONF [] Stat Lab 01/01/19 08:00 Results Meds: Medications Discontinued Medications Generic Name Dose Route Start Last Admin Trade Name Kang PRN Reason Stop Dose Admin Amoxicillin 875 mg 01/01/19 08:25 Amoxil PO 01/01/19 08:26 ONETIME ONE Ketorolac Tromethamine 60 mg 01/01/19 08:25 Toradol IM 01/01/19 08:26 ONETIME ONE Departure - Departure Time of Disposition: 08:35 Disposition: Home, Self-Care 01 Condition: Good Clinical Impression: Pharyngitis Qualifiers: Pharyngitis/tonsillitis etiology: unspecified etiology Qualified Code(s): J02.9 - Acute pharyngitis, unspecified Upper respiratory infection Qualifiers: URI type: unspecified URI Qualified Code(s): J06.9 - Acute upper respiratory infection, unspecified - Discharge Information Prescriptions: Amoxicillin [Amoxil] 875 mg PO Q12HR #18 tab Instructions: Sore Throat, Upper Respiratory Infection, Adult, [id number] Referrals: Kirsten Castellano MD [Primary Care Provider] - Forms: ED Department Discharge, ED Return to Work/School Form Additional Instructions: 1. discharge home 2. amoxil 875mg PO BID x 10 days 3. zyrtec 10mg PO QD 4. benadryl 50mg PO QHS PRN 5. motrin 600mg PO Q6 x 5 days 6. follow up with PCP 48 hours if no improvement 7. return to ER for worsening symptoms - My Orders Last 24 Hours: My Active Orders 01/01/19 08:00 CULTURE STREP A CONFIRMATION [RM] Stat STREP SCRN A RAPID W CULT CONF [] Stat - Assessment/Plan Last 24 Hours: My Active Orders 01/01/19 08:00 CULTURE STREP A CONFIRMATION [RM] Stat STREP SCRN A RAPID W CULT CONF [] Stat Assessment:: 1. acute pharyngitis 2. upper respiratory tract infection Plan: 1. discharge home 2. amoxil 875mg PO BID x 10 days 3. zyrtec 10mg PO QD 4. benadryl 50mg PO QHS PRN 5. motrin 600mg PO Q6 x 5 days 6. follow up with PCP 48 hours if no improvement 7. return to ER for worsening symptoms
[2019-01-01] MEDS: Ketorolac 60 MG/2 ML SDV IM ONE (08:41)
[2019-01-01] MEDS: Amoxicillin 500 MG Cap PO SCH (08:42)
[2019-01-01] MEDS: Amoxicillin 875 MG Tab PO ONE (08:42)
== END 2019-01-01 08:54 | disposition home or self-care (01) ==
LOC: KA.ED 07:48
DX: J02.9 Acute pharyngitis, unspecified (principal); I10 Essential (primary) hypertension; E11.9 Type 2 diabetes mellitus without complications; E78.00 Pure hypercholesterolemia, unspecified; Z79.84 Long term (current) use of oral hypoglycemic drugs; Z79.899 Other long term (current) drug therapy; Z88.8 Allergy status to other drugs, medicaments and biological substances; Z88.6 Allergy status to analgesic agent; Z88.5 Allergy status to narcotic agent; Z88.1 Allergy status to other antibiotic agents
CPT/HCPCS: 87081; 87430; 96372; 99283; A9270-GY; J1885

== ENCOUNTER 2019-07-11 16:05 | Emergency (ER) | payer MEDICARE, BC ==
--- NOTE | 2019-07-11 16:24 | EDM.PDOC ---
ED HPI GENERAL MEDICAL PROBLEM - General Chief Complaint: Headache Stated Complaint: HEADACHE, N/V Time Seen by Provider: 07/11/19 16:23 Source of Information: Reports: Patient, Family History Limitations: Reports: No Limitations - History of Present Illness INITIAL COMMENTS - FREE TEXT/NARRATIVE: Spinal on the 06 02 hip arthroscopic cleaning up. Did well yesterday was likely too active. Headache started to develop last evening but was mild in nature. She retired to bed awakening with headache that worsened, Today extreme headache with nausea vomiting. Onset Date: 07/10/19 Onset Time: 19:00 Duration: Hour(s):, Getting Worse Location: Reports: Head Quality: Reports: Sharp Severity: Severe Improves with: Reports: None Worsens with: Reports: Movement Context: Reports: Other Associated Symptoms: Reports: Nausea/Vomiting headache Pain Score (Numeric/FACES): 9 - Related Data Allergies Allergy/AdvReac Type Severity Reaction Status Date / Time meperidine HCl [From Demerol] Allergy Severe Seizure Verified 07/11/19 16:48 tramadol Allergy Severe Anaphylactic Verified 07/11/19 16:48 Shock clindamycin Allergy Facial Verified 07/11/19 16:48 Swelling fentanyl Allergy Seizure Verified 07/11/19 16:48 hydromorphone [From Dilaudid] Allergy Headache Verified 07/11/19 16:48 Home Meds: Home Meds Simvastatin [Zocor] 20 mg PO BEDTIME 02/26/14 [History] Hydrocodone/Acetaminophen [Hydrocodon-Acetaminophn 10-325] 1 tab PO Q4H PRN 05/06 [History] Lisinopril 10 mg PO DAILY 11/21/17 [History] Ondansetron [Ondansetron ODT] 4 mg SL Q8H PRN 05/20/18 [History] metFORMIN HCl [Metformin HCl] 1,000 mg PO BIDMEALS #0 05/24/18 [Rx] Multivitamin [Multivitamins] 1 cap PO DAILY 06/28/18 [History] Urea [Urea 20% Crm] 1 applic TOP TID 08/04/18 [History] Past Medical History HEENT History: Reports: Cataract Other HEENT History: glasses Cardiovascular History: Reports: High Cholesterol, Hypertension Respiratory History: Reports: Pneumonia, Recurrent Gastrointestinal History: Reports: Diverticulosis, Hiatal Hernia Other Gastrointestinal History: umbilical hernias Genitourinary History: Reports: Renal Calculus, Other (See Below) Other Genitourinary History: recent cystoscopy and lipotripsy for renal stones to R kidney and stent placement to R ureter 2 weeks ago ((05/14/2017) [employer] TECHNICIAN History: Reports: Musculoskeletal History: Reports: Other (See Below) Other Musculoskeletal History: bursitis Neurological History: Reports: Seizure, Other (See Below) Other Neuro History: in the past from pain medications Endocrine/Metabolic History: Reports: Diabetes, Type II - Infectious Disease History Infectious Disease History: Reports: Chicken Pox, Influenza, Measles, Mumps, Shingles - Past Surgical History Head Surgeries/Procedures: Reports: None HEENT Surgical History: Reports: Cataract Surgery Cardiovascular Surgical History: Reports: None Respiratory Surgical History: Reports: None GI Surgical History: Reports: Colonoscopy, Hernia Repair/Other Female Surgical History: Reports: Breast Biopsy, Hysterectomy, Lithotripsy/ ESWL, Ureteral Stent Endocrine Surgical History: Reports: None Neurological Surgical History: Reports: None Musculoskeletal Surgical History: Reports: None Social & Family History - Family History Family Medical History: Noncontributory Cardiac: Reports: Heart Failure, [place] - Caffeine Use Caffeine Use: Reports: None - Living Situation & Occupation Occupation: Employed ED ROS GENERAL - Review of Systems Review Of Systems: See Below Constitutional: Reports: No Symptoms HEENT: Reports: No Symptoms Respiratory: Reports: No Symptoms Cardiovascular: Reports: No Symptoms Endocrine: Reports: No Symptoms GI/Abdominal: Reports: Nausea, Vomiting : Reports: No Symptoms Musculoskeletal: Reports: Other (Hip pain with arthroscopic cleaning of the hip joint) Skin: Reports: No Symptoms Neurological: Reports: Headache Psychiatric: Reports: No Symptoms Hematologic/Lymphatic: Reports: No Symptoms Immunologic: Reports: No Symptoms ED EXAM, GENERAL - Physical Exam Exam: See Below Exam Limited By: No Limitations General Appearance: Alert, WD/WN, Severe Distress Ears: Normal External Exam, Normal Canal, Hearing Grossly Normal Nose: Normal Inspection, Normal Mucosa, No Blood Throat/Mouth: Normal Inspection, Normal Lips, Normal Teeth, Normal Oropharynx Head: Atraumatic, Normocephalic Neck: Normal Inspection, Supple, Non-Tender, Full Range of Motion Respiratory/Chest: No Respiratory Distress, Lungs Clear, Normal Breath Sounds, No Accessory Muscle Use, Chest Non-Tender Cardiovascular: Normal Peripheral Pulses GI/Abdominal: Normal Bowel Sounds, Soft, Non-Tender, No Organomegaly, No Distention, No Abnormal Bruit, No Mass (Female) Exam: Deferred Rectal (Female) Exam: Deferred Extremities: Normal Inspection, Normal Range of Motion Neurological: Alert, Oriented, CN II-XII Intact, Normal Cognition Psychiatric: Normal Affect, Normal Mood Skin Exam: Warm, Dry, Intact, Normal Color, No Rash Lymphatic: No Adenopathy Course - Vital Signs Last Recorded V/S: Last Vital Signs Temp 36.0 C 07/11/19 16:10 Pulse 80 07/11/19 16:10 Resp 20 07/11/19 16:10 BP 174/78 H 07/11/19 16:10 Pulse Ox 94 L 07/11/19 16:10 - Orders/Labs/Meds Orders: Active Orders 24 hr Category Date Time Status Peripheral IV Care [RC] . DIRECTED Care 07/11/19 16:31 Active Sodium Chloride 0.9% [Saline Flush] Med 07/11/19 16:31 Active 10 ml FLUSH Q8HR PRN Peripheral IV Insertion Adult [OM.PC] Routine Oth 07/11/19 16:31 Ordered Medication Orders Sodium Chloride (Saline Flush) 10 ml FLUSH Q8HR PRN PRN Reason: keep vein open Last Admin: 07/11/19 16:45 Dose: 10 ml Labs: Laboratory Tests 07/11/19 07/11/19 Range/Units 16:37 16:37 WBC 7.24 (5.00-10.00) 10^3/uL RBC 3.92 (3.80-5.50) 10^6/uL Hgb 12.1 (12.0-16.0) g/dL Hct 35.8 L (37.0-47.0) % MCV 91.3 (82.0-92.0) fL MCH 30.9 (27.0-31.0) pg MCHC 33.8 (32.0-36.0) g/dL RDW 13.3 (11.5-14.5) % Plt Count 171 (150-400) 10^3/uL MPV 9.3 (7.4-10.4) fL Immature Gran % (Auto) 0.3 (0.0-5.0) % Neut % (Auto) 83.2 H (50.0-70.0) % Lymph % (Auto) 9.7 L (20.0-40.0) % [place] % (Auto) 5.9 (2.0-8.0) % Eos % (Auto) 0.8 L (1.0-3.0) % Baso % (Auto) 0.1 (0.0-1.0) % Immature Gran # (Auto) 0.02 (0.00-0.50) 10^3/uL Neut # (Auto) 6.02 (2.50-7.00) 10^3/uL Lymph # (Auto) 0.70 L (1.00-4.00) 10^3/uL [place] # (Auto) 0.43 (0.10-0.80) 10^3/uL Eos # (Auto) 0.06 L (0.10-0.30) 10^3/uL Baso # (Auto) 0.01 (0.00-0.10) 10^3/uL Sodium 144 (136-145) mmol/L Potassium 4.2 (3.3-5.3) mmol/L Chloride 104 (98-115) mmol/L Carbon Dioxide 29.3 (21.0-32.0) mmol/L Anion Gap 14.9 (5-15) mmol/L BUN 12 (6-25) mg/dL Creatinine 0.84 (0.51-1.17) mg/dL Est Cr Clr Drug Dosing TNP Estimated GFR (MDRD) > 60 mL/min Glucose 135 H (75 - 99) mg/dL Calcium 9.0 (8.7-10.3) mg/dL Meds: Medications Generic Name Dose Route Start Last Admin Trade Name Freq PRN Reason Stop Dose Admin Sodium Chloride 10 ml 07/11/19 16:31 07/11/19 16:45 Saline Flush FLUSH 10 ml Q8HR PRN Administration keep vein open Discontinued Medications Generic Name Dose Route Start Last Admin Trade Name Freq PRN Reason Stop Dose Admin Diphenhydramine HCl 25 mg 07/11/19 16:32 07/11/19 17:13 Benadryl IVPUSH 07/11/19 16:33 25 mg ONETIME ONE Administration Sodium Chloride 1,000 mls @ 999 mls/hr 07/11/19 16:30 07/11/19 17:05 Normal Saline IV 07/11/19 17:30 999 mls/hr .BOLUS ONE Administration Ketorolac Tromethamine 30 mg 07/11/19 16:33 07/11/19 17:10 Toradol IVPUSH 07/11/19 16:34 30 mg ONETIME ONE Administration Ondansetron HCl 8 mg 07/11/19 16:50 07/11/19 17:06 Zofran IVPUSH 07/11/19 16:51 8 mg ONETIME ONE Administration - Re-Assessments/Exams Free Text/Narrative Re-Assessment/Exam: 07/11/19 18:24 pain now at a six Free Text/Narrative Re-Assessment/Exam: 07/11/19 19:00 Nausea resolved pain continues to improve and is willing to go home at this time. Pain less than 6 Departure - Departure Time of Disposition: 19:00 Disposition: Home, Self-Care 01 Clinical Impression: Tension-type headache - Discharge Information *PRESCRIPTION DRUG MONITORING PROGRAM REVIEWED*: Not Applicable *COPY OF PRESCRIPTION DRUG MONITORING REPORT IN PATIENT LISET: Not Applicable Instructions: General Headache Without Cause, [id number] Referrals: Kirsten Castellano MD [Primary Care Provider] - Forms: ED Department Discharge Additional Instructions: Home rest in a quiet place. Continue your current medications as directed as well as diet and activities as tolerated. Avoid any stressors or irritants such as light, noise, orders, or foods & beverages that did not agree with you. Recheck as needed, return if headache should recur or worsen. - Problem List & Annotations (1) Headache after spinal puncture SNOMED Code(s): 056125831 Code(s): G97.1 - OTHER REACTION TO SPINAL AND LUMBAR PUNCTURE Status: Acute Priority: High Current Visit: Yes Onset Date: ~07/10/19 (2) Nausea & vomiting SNOMED Code(s): 97510774 Code(s): R11.2 - NAUSEA WITH VOMITING, UNSPECIFIED Status: Acute Priority : High Current Visit: Yes Qualifiers: Vomiting Intractability: unspecified (3) Hyperglycemia due to type 2 diabetes mellitus SNOMED Code(s): 161487379676839, 327246375337046 Code(s): E11.65 - TYPE 2 DIABETES MELLITUS WITH HYPERGLYCEMIA Status: Acute Priority: Medium Current Visit: Yes - Problem List Review Problem List Initiated/Reviewed/Updated: Yes - My Orders Last 24 Hours: My Active Orders 07/11/19 16:31 Peripheral IV Care [RC] . DIRECTED Sodium Chloride 0.9% [Saline Flush] 10 ml FLUSH Q8HR PRN Peripheral IV Insertion Adult [OM.PC] Routine - Assessment/Plan Last 24 Hours: My Active Orders 07/11/19 16:31 Peripheral IV Care [RC] . DIRECTED Sodium Chloride 0.9% [Saline Flush] 10 ml FLUSH Q8HR PRN Peripheral IV Insertion Adult [OM.PC] Routine Plan: Home rest in a quiet place. Avoid any stressors or irritants such as light, noise, orders, or foods & beverages that did not agree with you. Recheck as needed, return if headache should recur or worsen.
[2019-07-11] MEDS ORDERED: Sodium Chloride 0.9% 1,000 ML IV ONE (16:30)
[2019-07-11] MEDS ORDERED: Sodium Chloride 0.9% 10 ML Syringe FLUSH PRN (16:31)
[2019-07-11] MEDS ORDERED: diphenhydrAMINE 50 MG/ML SDV IVPUSH ONE (16:32)
[2019-07-11] MEDS ORDERED: Ketorolac 30 MG/ML SDV IVPUSH ONE (16:33)
[2019-07-11] MEDS ORDERED: Ondansetron 8 MG in Sodium Chloride 0.9% 50 ML IV ONE (16:33)
[2019-07-11] MEDS ORDERED: Ondansetron 4 MG/2 ML SDV IVPUSH ONE (16:50)
[2019-07-11 17:08] LABS: ANION GAP 14.9 mmol/L (5-15); CHLORIDE,CL 104 mmol/L (98-115); SODIUM,NA 144 mmol/L (136-145)
[2019-07-11 19:20] VITALS: BP 136/65; PULSE 55
== END 2019-07-11 19:16 | disposition home or self-care (01) ==
LOC: KA.ED 16:05
DX: G44.209 Tension-type headache, unspecified, not intractable (principal); I10 Essential (primary) hypertension; E78.00 Pure hypercholesterolemia, unspecified; E11.9 Type 2 diabetes mellitus without complications; Z88.1 Allergy status to other antibiotic agents; Z88.8 Allergy status to other drugs, medicaments and biological substances; Z79.899 Other long term (current) drug therapy; Z79.84 Long term (current) use of oral hypoglycemic drugs; Z90.710 Acquired absence of both cervix and uterus
CPT/HCPCS: 80048; 85025; 96361; 96374; 96375; 99284; J1200; J1885; J2405; J7030

== ENCOUNTER 2021-08-12 10:23 | Emergency (ER) | payer MEDICARE, BC ==
[2021-08-12] MEDS: Aspirin 81 MG Tab.Chew PO ONE (10:45)
--- NOTE | 2021-08-12 11:04 | EDM.PDOC ---
ED HPI GENERAL MEDICAL PROBLEM - General Chief Complaint: General Stated Complaint: HEADACHE, CHEST CONGESTION Time Seen by Provider: 08/12/21 10:30 Source of Information: Reports: Patient, Family (daughter) - History of Present Illness INITIAL COMMENTS - FREE TEXT/NARRATIVE: 71-year-old female presents to the emergency room with complaints of headache and chest congestion. Her symptoms started yesterday morning. She reports a nonproductive cough. She states that it "feels like as elephant is on her chest." She reports no underlying cardiac history other than high cholesterol. She takes a statin for this. No history of NV. No CVA. She has frequent headaches in the past. Described as tension type headaches in her chart. She has no fever, no chills, no abdominal pain. She reports no sinus pain. No arm, back shoulder neck or jaw pain. No nausea or vomiting. Onset: Today Onset Date: 08/11/21 Duration: Day(s): Location: Reports: Head Quality: Reports: Pressure Severity: Mild Improves with: Reports: None, Medication Worsens with: Reports: Breathing Associated Symptoms: Reports: Cough, Headaches. Denies: cough w sputum, Diaphoresis, Fever/Chills, Nausea/Vomiting, Shortness of Breath Treatments WHIZZER: Reports: NSAIDS Chest Pain Score (Numeric/FACES): 8 - Related Data Allergies Allergy/AdvReac Type Severity Reaction Status Date / Time meperidine HCl [From Demerol] Allergy Severe Seizure Verified 08/12/21 10:48 tramadol Allergy Severe Anaphylactic Verified 08/12/21 10:48 Shock clindamycin Allergy Facial Verified 08/12/21 10:48 Swelling fentanyl Allergy Seizure Verified 08/12/21 10:48 hydromorphone [From Dilaudid] Allergy Headache Verified 08/12/21 10:48 Home Meds: Home Meds Simvastatin [Zocor] 20 mg PO BEDTIME 02/26/14 [History] Hydrocodone/Acetaminophen [Hydrocodone-Acetamin 10-325 mg] 1 tab PO Q4H PRN 05/27/17 [History] Lisinopril 10 mg PO DAILY 11/21/17 [History] Ondansetron [Ondansetron ODT] 4 mg SL Q8H PRN 05/20/18 [History] metFORMIN HCl [Metformin HCl] 1,000 mg PO BIDMEALS #0 05/24/18 [Rx] Multivitamin [Multivitamins] 1 cap PO DAILY 06/28/18 [History] Urea [Urea 20% Crm] 1 applic TOP TID PRN 08/04/18 [History] Aspirin 81 mg PO DAILY 05/02/21 [History] Naproxen Sodium [Aleve] 220 mg PO BID PRN 08/12/21 [History] Past Medical History HEENT History: Reports: Cataract Other HEENT History: glasses Cardiovascular History: Reports: High Cholesterol, Hypertension Respiratory History: Reports: Pneumonia, Recurrent Gastrointestinal History: Reports: Diverticulosis, Hiatal Hernia Other Gastrointestinal History: umbilical hernias Genitourinary History: Reports: Renal Calculus, Other (See Below) Other Genitourinary History: recent cystoscopy and lipotripsy for renal stones to R kidney and stent placement to R ureter 2 weeks ago ((05/14/2017) [employer] History: Reports: Musculoskeletal History: Reports: Other (See Below) Other Musculoskeletal History: bursitis Neurological History: Reports: Seizure, Other (See Below) Other Neuro History: in the past from pain medications Endocrine/Metabolic History: Reports: Diabetes, Type II - Infectious Disease History Infectious Disease History: Reports: Chicken Pox, Influenza, Measles, Mumps, Shingles - Past Surgical History Head Surgeries/Procedures: Reports: None HEENT Surgical History: Reports: Cataract Surgery Cardiovascular Surgical History: Reports: None Respiratory Surgical History: Reports: None GI Surgical History: Reports: Colonoscopy, Hernia Repair/Other Female Surgical History: Reports: Breast Biopsy, Hysterectomy, Lithotripsy/ESWL, Ureteral Stent Endocrine Surgical History: Reports: None Neurological Surgical History: Reports: None Musculoskeletal Surgical History: Reports: None Other Musculoskeletal Surgeries/Procedures:: r ankle "2. ankle bone removed 2016" Social & Family History - Family History Family Medical History: No Pertinent Family History Cardiac: Reports: Heart Failure, NV - Tobacco Use Tobacco Use Status *Q: Never Tobacco User - Caffeine Use Caffeine Use: Reports: Soda, Tea - Recreational Drug Use Recreational Drug Use: No - Living Situation & Occupation Occupation: Employed ED ROS GENERAL - Review of Systems Review Of Systems: See Below Constitutional: Reports: No Symptoms HEENT: Reports: No Symptoms Respiratory: Reports: Cough. Denies: Shortness of Breath Cardiovascular: Denies: Chest Pain, Blood Pressure Problem, Dyspnea on Exertion, Edema, Lightheadedness, Orthopnea, Palpitations, PND Endocrine: Reports: No Symptoms GI/Abdominal: Denies: Abdominal Pain, Constipation, Diarrhea, Distension, Nausea, Vomiting : Reports: No Symptoms Musculoskeletal: Reports: No Symptoms Skin: Reports: No Symptoms Neurological: Reports: Headache. Denies: Confusion, Dizziness Psychiatric: Reports: No Symptoms Hematologic/Lymphatic: Reports: No Symptoms Immunologic: Reports: No Symptoms ED EXAM, GENERAL - Physical Exam Exam: See Below Exam Limited By: No Limitations General Appearance: Alert, WD/WN, No Apparent Distress Eye Exam: Bilateral Eye: EOMI Ears: Normal External Exam, Normal Canal, Hearing Grossly Normal, Normal TMs Ear Exam: Left Ear: Other (Cerumen in the right ear), Bilateral Ear: TM normal Nose: Normal Inspection, Normal Mucosa, No Blood. No: Clear Rhinorrhea Throat/Mouth: Normal Inspection, Normal Lips, Normal Teeth, Normal Gums, Normal Oropharynx, Normal Voice, No Airway Compromise Head: Atraumatic, Normocephalic Neck: Normal Inspection, Supple, Non-Tender, Full Range of Motion. No: Carotid Bruit, Lymphadenopathy (L), Lymphadenopathy (R), Thyromegaly Respiratory/Chest: No Respiratory Distress, Lungs Clear, Normal Breath Sounds, No Accessory Muscle Use, Chest Non-Tender Cardiovascular: Normal Peripheral Pulses, Regular Rate, Rhythm, No Murmur Peripheral Pulses: 2+: Carotid (L), Carotid (R), Radial (L), Radial (R), Dorsalis Pedis (L), Dorsalis Pedis (R) GI/Abdominal: Soft, Non-Tender Back Exam: Normal Inspection, Full Range of Motion Extremities: Normal Inspection, Normal Range of Motion, Non-Tender, No Pedal Edema Psychiatric: Normal Affect, Normal Mood Skin Exam: Warm, Dry, Intact, Normal Color, No Rash Lymphatic: No Adenopathy #1 Interpretation EKG Date: 08/12/21 Rhythm: Other (Sinus tachycardia) Rate (Beats/Min): 104 [place]: Normal P-Wave: Present QRS: Normal ST-T: Normal QT: Normal Comparison: NA - No Prior EKG EKG Interpretation Comments: Sinus tachycardia otherwise normal ECG Course - Vital Signs Last Recorded V/S: Last Vital Signs Temp 97.4 F 08/12/21 10:33 Pulse 100 08/12/21 11:30 Resp 18 08/12/21 11:30 BP 123/61 08/12/21 11:30 Pulse Ox 93 L 08/12/21 11:30 - Orders/Labs/Meds Orders: Active Orders 24 hr Category Date Time Status EKG 12 Lead [EK] Stat Ther 08/12/21 10:37 Ordered Labs: Laboratory Tests 08/12/21 08/12/21 Range/Units 10:45 10:45 WBC 6.18 (5.00-10.00) 10^3/uL RBC 4.20 (3.80-5.50) 10^6/uL Hgb 12.3 (12.0-16.0) g/dL Hct 37.6 (37.0-47.0) % MCV 89.5 (82.0-92.0) fL MCH 29.3 (27.0-31.0) pg MCHC 32.7 (32.0-36.0) g/dL RDW 13.7 (11.5-14.5) % Plt Count 197 (150-400) 10^3/uL MPV 9.0 (7.4-10.4) fL Immature Gran % (Auto) 0.0 (0.0-5.0) % Neut % (Auto) 75.1 H (50.0-70.0) % Lymph % (Auto) 11.0 L (20.0-40.0) % [place] % (Auto) 11.8 H (2.0-8.0) % Eos % (Auto) 1.6 (1.0-3.0) % Baso % (Auto) 0.5 (0.0-1.0) % Neut # (Auto) 4.64 (2.50-7.00) 10^3/uL Lymph # (Auto) 0.68 L (1.00-4.00) 10^3/uL [place] # (Auto) 0.73 (0.10-0.80) 10^3/uL Eos # (Auto) 0.10 (0.10-0.30) 10^3/uL Baso # (Auto) 0.03 (0.00-0.10) 10^3/uL Immature Gran # (Auto) 0.00 (0.00-0.50) 10^3/uL Sodium 143 (136-145) mmol/L Potassium 4.2 (3.5-5.1) mmol/L Chloride 104 (98-107) mmol/L Carbon Dioxide 25.8 (21.0-32.0) mmol/L Anion Gap 17.4 H (5-15) mmol/L BUN 18 (7-18) mg/dL Creatinine 1.02 (0.51-1.17) mg/dL Est Cr Clr Drug Dosing 43.31 mL/min Estimated GFR (MDRD) 53 mL/min Glucose 91 (70-140) mg/dL Calcium 9.6 (8.7-10.3) mg/dL Troponin I High Sens 5.300 (0-51.000) pg/mL Meds: Medications Discontinued Medications Generic Name Dose Route Start Last Admin Trade Name Kang PRN Reason Stop Dose Admin Aspirin 324 mg 08/12/21 10:38 08/12/21 10:45 Aspirin 81 Mg Tab.Chew PO 08/12/21 10:39 324 mg ONETIME ONE Administration - Radiology Interpretation Free Text/Narrative:: CXR PA and lateral Discussion: Cardiomediastinal silhouette is normal in size and contour. No infiltrate, effusion, pneumothorax, or edema. Pulmonary hyperinflation. Impression: No acute cardiopulmonary abnormality - Re-Assessments/Exams Free Text/Narrative Re-Assessment/Exam: 08/12/21 11:38 Patient is in no acute distress was fine throughout examination gone over lab results which look unremarkable EKG also shows essentially normal normal sinus rhythm and physical examination was unremarkable. Chest x-ray is clear. Departure - Departure Time of Disposition: 11:26 Disposition: Home, Self-Care 01 Condition: Good Clinical Impression: Upper respiratory infection, viral, Cough - Discharge Information Instructions: Dextromethorphan; Guaifenesin; Pseudoephedrine oral suspension, Upper Respiratory Infection, Adult, [id number] Referrals: Kirsten Castellano MD [Primary Care Provider] - Forms: ED Department Discharge Care Plan Goals: 1. Rest 2. Oral hydration 3. NSAIDs or acetaminophen for any pain or discomfort, fevers. 4. Decongestant such as DayQuil or NyQuil as needed for symptomatic relief. Sepsis Event Note (ED) - Evaluation Sepsis Screening Result: No Definite Risk - Focused Exam Vital Signs: Vital Signs Temp Pulse Resp BP Pulse Ox 08/12/21 11:30 100 18 123/61 93 L 08/12/21 11:15 101 H 18 108/64 94 L 08/12/21 10:45 109 H 18 138/68 92 L 08/12/21 10:33 97.4 F 110 H 18 138/68 94 L - My Orders Last 24 Hours: My Active Orders 08/12/21 10:37 EKG 12 Lead [EK] Stat - Assessment/Plan Last 24 Hours: My Active Orders 08/12/21 10:37 EKG 12 Lead [EK] Stat Assessment:: Upper respiratory viral infection Cough Plan: 1. Rest 2. Push oral fluids 3. NSAIDs or acetaminophen for pain or discomfort 4. Decongestants, DayQuil, NyQuil as needed for symptomatic relief of sinus pressure and headache.
[2021-08-12 11:15] LABS: ANION GAP 17.4 mmol/L (5-15)
--- NOTE | 2021-08-12 11:22 | CR ---
[id number] RAD/RAD Chest PA And Lateral EXAM: RAD Chest PA And Lateral INDICATION: CHEST PRESSURE. COMPARISON: None. DISCUSSION: Cardiomediastinal silhouette is normal in size and contour. No infiltrate, effusion, pneumothorax, or edema. Pulmonary hyperinflation. IMPRESSION: No acute cardiopulmonary abnormality. Sergey Jones DO 08/12/21 1121 Thank you for allowing us to participate in the care of your patient.
[2021-08-12 11:31] VITALS: BP 123/61; PULSE 100
== END 2021-08-12 11:45 | disposition home or self-care (01) ==
LOC: KA.ED 10:23
DX: J06.9 Acute upper respiratory infection, unspecified (principal); E78.00 Pure hypercholesterolemia, unspecified; I10 Essential (primary) hypertension; E11.9 Type 2 diabetes mellitus without complications; Z79.82 Long term (current) use of aspirin; Z79.899 Other long term (current) drug therapy; Z88.5 Allergy status to narcotic agent; Z88.1 Allergy status to other antibiotic agents; Z88.8 Allergy status to other drugs, medicaments and biological substances
CPT/HCPCS: 36415; 71046; 80048; 84484; 85025; 93005; 93010; 99284; 99284-25; A9270-GY

== ENCOUNTER 2021-12-05 09:28 | Day surgery (SDC) | payer MEDICARE, BC ==
[2021-12-05] MEDS ORDERED: Sodium Chloride 0.9% 10 ML Syringe FLUSH PRN (09:45)
[2021-12-05] MEDS: Sodium Chloride 0.9% 1,000 ML IV SCH (10:05)
[2021-12-05] MEDS ORDERED: Midazolam 1 MG/ML 2 ML SDV ONE (10:44)
[2021-12-05] MEDS ORDERED: Propofol 200 MG/20 ML SDV ONE (10:45)
[2021-12-05 13:52] VITALS: BP 118/48; PULSE 65
== END 2021-12-05 13:18 | disposition home or self-care (01) ==
LOC: KA.SDS 09:28
PROVIDERS: ATTEND Surgery
DX: Z12.11 Encounter for screening for malignant neoplasm of colon (principal); K57.30 Diverticulosis of large intestine without perforation or abscess without bleeding; M25.552 Pain in left hip; Z88.8 Allergy status to other drugs, medicaments and biological substances; Z88.1 Allergy status to other antibiotic agents; Z79.82 Long term (current) use of aspirin; Z79.899 Other long term (current) drug therapy
CPT/HCPCS: 00812; 82947; J2250; J2704; J7030

== ENCOUNTER 2023-02-24 12:41 | Emergency (ER) | payer MEDICARE, BC ==
[2023-02-24 12:55] VITALS: BP 132/73; PULSE 98
[2023-02-24 13:10] LABS: BASOPHILS ABSOLUTE AUTO 0.03 10^3/uL (0.00-0.10); BASOPHILS PERCENT AUTO 0.4 % (0.0-1.0); EOSINOPHILS ABSOLUTE AUTO 0.19 10^3/uL (0.10-0.30); EOSINOPHILS PERCENT AUTO 2.5 % (1.0-3.0); HEMATOCRIT 39.2 % (37.0-47.0); HEMOGLOBIN 12.3 g/dL (12.0-16.0); IMMATURE GRAN ABSOLUTE AUTO 0.01 10^3/uL (0.00-0.50); IMMATURE GRAN PERCENT AUTO 0.1 % (0.0-5.0); LYMPHOCYTES ABSOLUTE AUTO 1.27 10^3/uL (1.00-4.00); LYMPHOCYTES PERCENT AUTO 16.4 % (20.0-40.0); MEAN CORPUSCULAR HEMOGLOBIN 29.4 pg (27.0-31.0); MEAN CORPUSCULAR HGB CONC 31.4 g/dL (32.0-36.0); MEAN CORPUSCULAR VOLUME 93.8 fL (82.0-92.0); MEAN PLATELET VOLUME 9.1 fL (7.4-10.4); MONOCYTES ABSOLUTE AUTO 0.47 10^3/uL (0.10-0.80); MONOCYTES PERCENT AUTO 6.1 % (2.0-8.0); NEUTROPHILS ABSOLUTE AUTO 5.76 10^3/uL (2.50-7.00); NEUTROPHILS PERCENT AUTO 74.5 % (50.0-70.0); PLATELET COUNT,PLT 239 10^3/uL (150-400); RED BLOOD CELL COUNT 4.18 10^6/uL (3.80-5.50); RED CELL DISTRIBUTION WIDTH 15.7 % (11.5-14.5); WHITE BLOOD CELL COUNT,WBC 7.73 10^3/uL (5.00-10.00)
[2023-02-24 13:33] LABS: C-REACTIVE PROTEIN 0.5 mg/dL (0.0-0.9); URIC ACID 2.7 mg/dL (2.6-7.2)
== END 2023-02-24 14:02 | disposition home or self-care (01) ==
LOC: KA.ED 12:41
DX: M11.241 Other chondrocalcinosis, right hand (principal); E78.00 Pure hypercholesterolemia, unspecified; M10.9 Gout, unspecified; I10 Essential (primary) hypertension; E11.9 Type 2 diabetes mellitus without complications; Z88.5 Allergy status to narcotic agent; Z88.1 Allergy status to other antibiotic agents; Z88.8 Allergy status to other drugs, medicaments and biological substances; Z79.899 Other long term (current) drug therapy; Z79.82 Long term (current) use of aspirin
CPT/HCPCS: 36415; 73140-F7; 84550; 85025; 86140; 99283; 99284

== ENCOUNTER 2024-09-28 14:45 | Emergency (ER) | payer MEDICARE, BC ==
[2024-09-28 15:24] LABS: BASOPHILS ABSOLUTE AUTO 0.03 10^3/uL (0.00-0.10); BASOPHILS PERCENT AUTO 0.4 % (0.0-1.0); EOSINOPHILS ABSOLUTE AUTO 0.13 10^3/uL (0.10-0.30); EOSINOPHILS PERCENT AUTO 1.6 % (1.0-3.0); HEMATOCRIT 37.2 % (37.0-47.0); HEMOGLOBIN 12.1 g/dL (12.0-16.0); IMMATURE GRAN ABSOLUTE AUTO 0.01 10^3/uL (0.00-0.50); IMMATURE GRAN PERCENT AUTO 0.1 % (0.0-5.0); LYMPHOCYTES ABSOLUTE AUTO 1.42 10^3/uL (1.00-4.00); LYMPHOCYTES PERCENT AUTO 17.5 % (20.0-40.0); MEAN CORPUSCULAR HEMOGLOBIN 30.9 pg (27.0-31.0); MEAN CORPUSCULAR HGB CONC 32.5 g/dL (32.0-36.0); MEAN CORPUSCULAR VOLUME 94.9 fL (82.0-92.0); MONOCYTES ABSOLUTE AUTO 0.64 10^3/uL (0.10-0.80); MONOCYTES PERCENT AUTO 7.9 % (2.0-8.0); NEUTROPHILS ABSOLUTE AUTO 5.87 10^3/uL (2.50-7.00); NEUTROPHILS PERCENT AUTO 72.5 % (50.0-70.0); PLATELET COUNT,PLT 248 10^3/uL (150-400); RED BLOOD CELL COUNT 3.92 10^6/uL (3.80-5.50); RED CELL DISTRIBUTION WIDTH 13.9 % (11.5-14.5)
[2024-09-28 15:42] LABS: ANION GAP 14.5 mmol/L (5-15); BILIRUBIN TOTAL 0.3 mg/dL (0.2-1.0); CALCIUM 9.2 mg/dL (8.7-10.3); CREATININE 1.95 mg/dL (0.51-1.17); EST CRCL DRUG DOSING (CG) 21.19 mL/min; POTASSIUM,K 4.5 mmol/L (3.5-5.1)
[2024-09-28 16:17] LABS: BILIRUBIN,URINE NEGATIVE (NEGATIVE); COLOR,URINE YELLOW (YELLOW); GLUCOSE,URINE NEGATIVE (NEGATIVE); KETONES,URINE TRACE mg/dL (NEGATIVE); LEUKOCYTE ESTERASE,URINE SMALL (NEGATIVE); NITRITE,URINE NEGATIVE (NEGATIVE); OCCULT BLOOD,URINE NEGATIVE (NEGATIVE); PROTEIN,URINE TRACE mg/dL (NEGATIVE); UROBILINOGEN,URINE 0.2 E.U./dL (0.2-1.0)
[2024-09-28 16:24] LABS: APPEARANCE,URINE SLIGHTLY CLOUDY (CLEAR)
[2024-09-28 16:25] LABS: BACTERIA,URINE FEW /HPF (NONE TO FEW); EPITHELIAL CELLS,URINE RARE /LPF; HYALINE CASTS,URINE FEW; RBC,URINE 0-5 /HPF (0-5)
[2024-09-28] MEDS: LORazepam 2 MG/ML SDV IVPUSH ONE (17:06)
[2024-09-28] MEDS: Sodium Chloride 0.9% 1,000 ML IV ONE (17:34)
[2024-09-28 19:05] VITALS: BP 111/54; PULSE 73
== END 2024-09-28 19:00 | disposition home or self-care (01) ==
LOC: KA.ED 14:45
DX: R25.1 Tremor, unspecified (principal); I10 Essential (primary) hypertension; E78.00 Pure hypercholesterolemia, unspecified; E11.9 Type 2 diabetes mellitus without complications; Z90.49 Acquired absence of other specified parts of digestive tract; Z90.710 Acquired absence of both cervix and uterus; Z79.899 Other long term (current) drug therapy; Z79.82 Long term (current) use of aspirin; Z79.84 Long term (current) use of oral hypoglycemic drugs; Z88.8 Allergy status to other drugs, medicaments and biological substances; Z88.1 Allergy status to other antibiotic agents; Z88.5 Allergy status to narcotic agent
CPT/HCPCS: 36415; 70450; 80053; 81001; 83605; 84484; 85025; 96361; 96374; 99285-25; J2060; J7030

== ENCOUNTER 2024-12-01 07:59 | Day surgery (SDC) | payer MEDICARE, BC ==
[2024-12-01] MEDS ORDERED: Metoprolol Tartrate 5 MG/5 ML SDV IV ONE (08:00)
[2024-12-01] MEDS ORDERED: Sodium Chloride 0.9% 10 ML Syringe FLUSH PRN (08:00)
[2024-12-01] MEDS ORDERED: Glycopyrrolate 0.2 MG/ML SDV IVPUSH ONE (08:00)
[2024-12-01] MEDS: 50% Dextrose in Water 50 ML Syringe IVPUSH ONE (08:25)
[2024-12-01] MEDS ORDERED: Propofol 200 MG/20 ML SDV ONE (09:00)
[2024-12-01] MEDS ORDERED: Midazolam 1 MG/ML 2 ML SDV ONE (09:00)
[2024-12-01] MEDS: Sodium Chloride 0.9% 1,000 ML IV SCH (11:38)
[2024-12-01 12:39] VITALS: BP 142/68; PULSE 56
== END 2024-12-01 11:20 | disposition home or self-care (01) ==
LOC: KA.SDS 07:59
PROVIDERS: ATTEND Surgery
DX: K20.0 Eosinophilic esophagitis (principal); R13.10 Dysphagia, unspecified
CPT/HCPCS: 00731; 82947; 88305; 99100; J1596; J2250; J2704; J3490; J7030

== ENCOUNTER 2025-07-15 12:48 | Emergency (ER) | payer MEDICARE, BC ==
[2025-07-15] MEDS ORDERED: Sodium Chloride 0.9% 10 ML Syringe FLUSH PRN (13:05)
[2025-07-15 13:19] LABS: BASOPHILS ABSOLUTE AUTO 0.03 10^3/uL (0.00-0.10); BASOPHILS PERCENT AUTO 0.4 % (0.0-1.0); EOSINOPHILS ABSOLUTE AUTO 0.05 10^3/uL (0.10-0.30); EOSINOPHILS PERCENT AUTO 0.7 % (1.0-3.0); IMMATURE GRAN ABSOLUTE AUTO 0.01 10^3/uL (0.00-0.04); IMMATURE GRAN PERCENT AUTO 0.1 % (0.0-0.4); LYMPHOCYTES ABSOLUTE AUTO 1.03 10^3/uL (1.00-4.00); LYMPHOCYTES PERCENT AUTO 14.2 % (20.0-40.0); MEAN PLATELET VOLUME 9.5 fL (7.4-10.4); MONOCYTES ABSOLUTE AUTO 0.33 10^3/uL (0.10-0.80); MONOCYTES PERCENT AUTO 4.5 % (2.0-8.0); NEUTROPHILS ABSOLUTE AUTO 5.81 10^3/uL (2.50-7.00); NEUTROPHILS PERCENT AUTO 80.1 % (50.0-70.0); PLATELET COUNT,PLT 213 10^3/uL (150-400); RED BLOOD CELL COUNT 3.81 10^6/uL (3.80-5.50); RED CELL DISTRIBUTION WIDTH 15.5 % (11.5-14.5); WHITE BLOOD CELL COUNT,WBC 7.26 10^3/uL (5.00-10.00)
[2025-07-15 13:33] LABS: APPEARANCE,URINE CLEAR (CLEAR); GLUCOSE,URINE NEGATIVE (NEGATIVE); OCCULT BLOOD,URINE NEGATIVE (NEGATIVE)
[2025-07-15 13:37] LABS: ALANINE AMINOTRANSFERASE,ALT 17 U/L (14-63); ASPARTATE AMNIOTRANSFERASE,AST 16 U/L (15-37); BILIRUBIN TOTAL 0.3 mg/dL (0.2-1.0); BLOOD UREA NITROGEN,BUN 25 mg/dL (7-18); CARBON DIOXIDE,CO2 25.5 mmol/L (21.0-32.0); CHLORIDE,CL 106 mmol/L (98-107); CREATININE 0.91 mg/dL (0.51-1.17); GLUCOSE RANDOM 109 mg/dL (70-140); POTASSIUM,K 4.6 mmol/L (3.5-5.1); PROTEIN TOTAL,TP 7.0 g/dL (6.4-8.2); SODIUM,NA 143 mmol/L (136-145)
[2025-07-15 13:41] LABS: ESTIMATED GFR 65 mL/min (>=60)
[2025-07-15 13:45] LABS: EPITHELIAL CELLS,URINE RARE /LPF
[2025-07-15 15:16] VITALS: BP 131/63; PULSE 80
== END 2025-07-15 15:20 | disposition home or self-care (01) ==
LOC: KA.ED 12:48
DX: R55 Syncope and collapse (principal); I10 Essential (primary) hypertension; E78.00 Pure hypercholesterolemia, unspecified; E11.9 Type 2 diabetes mellitus without complications; Z88.1 Allergy status to other antibiotic agents; Z88.5 Allergy status to narcotic agent; Z79.899 Other long term (current) drug therapy; Z79.82 Long term (current) use of aspirin; Z79.84 Long term (current) use of oral hypoglycemic drugs
CPT/HCPCS: 36415; 70450; 71045; 80053; 81001; 83605; 84484; 85025; 96360; 99285-25; J7030